=== PATIENT | male | born 1975 | race Hispanic/Latino ===

== ENCOUNTER → 2020-05-25 | Outpatient (CLI) | payer BC | LOC: RAD 11:20 | PROVIDERS: ATTEND Family Medicine | DX: M79.605 Pain in left leg (principal); I82.812 Embolism and thrombosis of superficial veins of left lower extremity | CPT/HCPCS: 93971 ==

== ENCOUNTER → 2020-06-08 | Outpatient (CLI) | payer BC | LOC: RAD 12:30 | PROVIDERS: ATTEND Family Medicine | DX: M79.605 Pain in left leg (principal); I82.412 Acute embolism and thrombosis of left femoral vein; I82.492 Acute embolism and thrombosis of other specified deep vein of left lower extremity | CPT/HCPCS: 93971 ==

== ENCOUNTER → 2020-08-10 | Outpatient (CLI) | payer BC | LOC: RAD 14:25 | PROVIDERS: ATTEND Internal Medicine Hematology & Oncology | DX: I82.432 Acute embolism and thrombosis of left popliteal vein (principal); I82.442 Acute embolism and thrombosis of left tibial vein; E78.5 Hyperlipidemia, unspecified; E03.9 Hypothyroidism, unspecified | CPT/HCPCS: 93970 ==